=== PATIENT | male | born 1990 | race Caucasian/White ===

== ENCOUNTER 2022-05-28 13:09 | Emergency (ER) | payer SELFPAY ==
--- NOTE | 2022-05-28 13:28 | EDPHYS ---
Physician Documentation [facility] Name: Joao Gipson Age: 32 yrs Sex: Male : 1990 Arrival Date: 05/28/2022 Time: 13:10 Bed 3 Private MD: ABRAHAM Physician Fredi Heath HPI: 05/28 13:28 This 32 yrs old Male presents to ER via EMS with complaints of epigastric pain. snw 13:28 The patient presents with abdominal pain in the epigastric area. Onset: The snw symptoms/episode began/occurred suddenly, s/p eating a hot chip. The symptoms do not radiate. Associated signs and symptoms: Pertinent positives: nausea. The symptoms are described as burning. Severity of pain: At its worst the pain was severe. The patient has not experienced similar symptoms in the past. The patient has not recently seen a physician. EMS had seen pt post challenge and albuterol neb administered. Pt returned to work and pt then had intense upper abdominal pain. EMS returned and pt arrived calm with decreased distress.. Historical: - Allergies: 13:13 No Known Allergies; ll1 - PMHx: 13:13 ADD; adhd; Anxiety; Bipolar disorder; depressive disorder; Schizophrenia; ll1 - PSHx: 13:13 Tonsillectomy; ll1 - Immunization history:: Client reports receiving the 2nd dose of the Covid vaccine. - Social history:: Smoking status: Patient reports the use of cigarette tobacco products, denies chronic smoking, but will smoke occasionally. ROS: 13:32 Constitutional: Negative for fever, chills, and weight loss, Eyes: Negative for injury, snw pain, redness, and discharge, ENT: Negative for injury, pain, and discharge, Neck: Negative for injury, pain, and swelling, Cardiovascular: Negative for chest pain, palpitations, and edema, Back: Negative for injury and pain, : Negative for injury, bleeding, discharge, and swelling, MS/Extremity: Negative for injury and deformity, Skin: Negative for injury, rash, and discoloration, Neuro: Negative for headache, weakness, numbness, tingling, and seizure, Psych: Negative for depression, anxiety, suicide ideation, homicidal ideation, and hallucinations. 13:32 Respiratory: Positive for shortness of breath, s/p spicy ingestion. 13:32 Abdomen/GI: Positive for abdominal pain, nausea, of the epigastric area. Exam: 13:26 Constitutional: This is a well developed, well nourished patient who is awake, alert, snw and in no acute distress. Head/Face: Normocephalic, atraumatic. Eyes: Pupils equal round and reactive to light, extra-ocular motions intact. Lids and lashes normal. Conjunctiva and sclera are non-icteric and not injected. Cornea within normal limits. Periorbital areas with no swelling, redness, or edema. ENT: Nares patent. No nasal discharge, no septal abnormalities noted. Tympanic membranes are normal and external auditory canals are clear. Oropharynx with no redness, swelling, or masses, exudates, or evidence of obstruction, uvula midline. Mucous membranes moist. Neck: Trachea midline, no thyromegaly or masses palpated, and no cervical lymphadenopathy. Supple, full range of motion without nuchal rigidity, or vertebral point tenderness. No Meningismus. Chest/axilla: Normal chest wall appearance and motion. Nontender with no deformity. No lesions are appreciated. Cardiovascular: Regular rate and rhythm with a normal S1 and S2. No gallops, murmurs, or rubs. Normal PMI, no JVD. No pulse deficits. Respiratory: Lungs have equal breath sounds bilaterally, clear to auscultation and percussion. No rales, rhonchi or wheezes noted. No increased work of breathing, no retractions or nasal flaring. Back: No spinal tenderness. No costovertebral tenderness. Full range of motion. Skin: Warm, dry with normal turgor. Normal color with no rashes, no lesions, and no evidence of cellulitis. MS/ Extremity: Pulses equal, no cyanosis. Neurovascular intact. Full, normal range of motion. Neuro: Awake and alert, GCS 15, oriented to person, place, time, and situation. Cranial nerves II-XII grossly intact. Motor strength 5/5 in all extremities. Sensory grossly intact. Cerebellar exam normal. Normal gait. Psych: Awake, alert, with orientation to person, place and time. Behavior, mood, and affect are within normal limits. 13:26 Abdomen/GI: Inspection: abdomen appears normal, Bowel sounds: normal, Palpation: mild abdominal tenderness, in the epigastric area. Vital Signs: 13:13 BP 127 / 89; Pulse 71; Resp 17; Temp 98.8; Pulse Ox 97% ; Weight 74.84 kg; Height 5 ft. ll1 10 in. (177.80 cm); Pain 0/10; 13:40 BP 135 / 77; Pulse 73; Resp 16; Pulse Ox 98% on R/A; kr3 14:13 BP 143 / 76; Pulse 98; Resp 17; Pulse Ox 100% ; kr3 13:13 Body Mass Index 23.67 (74.84 kg, 177.80 cm) ll1 MDM: 13:16 Patient medically screened. snw 13:32 Data reviewed: vital signs, nurses notes. Data interpreted: Pulse oximetry: on room air snw is 97 %. Interpretation: normal. Administered Medications: 13:43 Drug: GI Cocktail without - (Maalox Suspension 30 ml, Lidocaine Liquid 2 % 15 kr3 ml) Route: PO; 14:15 Follow up: Response: No adverse reaction kr3 13:43 Drug: Pepcid (famotidine) 20 mg Route: IVP; Site: left antecubital; kr3 14:15 Follow up: Response: No adverse reaction kr3 Disposition Summary: 05/28/22 13:27 Discharge Ordered Location: Home snw Condition: Stable snw Diagnosis - Epigastric abdominal tenderness - s/p "one chip challenge" snw Followup: snw - With: Emergency Department - When: As needed - Reason: Worsening of condition Followup: snw - With: Private Physician - When: 2 - 3 days - Reason: Recheck today's complaints, Continuance of care, Re-evaluation by your physician Discharge Instructions: - Discharge Summary Sheet snw - Abdominal Pain, Adult snw Forms: - Medication Reconciliation Form snw - Thank You Letter snw - Antibiotic Education snw - Prescription Opioid Use snw - Work release form ll1 Prescriptions: - Pepcid 20 mg Oral Tablet - take 1 tablet by ORAL route every 12 hours for 10 days; 20 tablet; Refills: 0, snw Product Selection Permitted Signatures: Stephanie Fernandez FNP-C FNP-Celiow Cathy Pretty, RN RN ll1 Nery Beyer RN RN kr3
--- NOTE | 2022-05-28 13:28 | ER ---
Nurse's Notes [facility] Name: Joao iGpson Age: 32 yrs Sex: Male : 1990 Arrival Date: 05/28/2022 Time: 13:10 Bed 3 Private MD: Diagnosis: Epigastric abdominal tenderness-s/p "one chip challenge" Presentation: 05/28 13:13 Chief complaint: Patient states: Ate "one chip challenge", then had to call EMS for ll1 severe abd pain. Refused to come initially. 3.5 hours later decided to come in for N/V and severe abd pain. Coronavirus screen: Vaccine status: Patient reports receiving the 2nd dose of the covid vaccine. Client denies travel out of the [place] in the last 14 days. At this time, the client does not indicate any symptoms associated with coronavirus-19. Ebola Screen: Patient denies travel to an Ebola-affected area in the 21 days before illness onset. Initial Sepsis Screen: Does the patient meet any 2 criteria? No. Patient's initial sepsis screen is negative. Does the patient have a suspected source of infection? Yes: Acute abdominal pain. Risk Assessment: Do you want to hurt yourself or someone else? Patient reports no desire to harm self or others. Onset of symptoms was May 28, 2022. 13:13 Method Of Arrival: EMS ll1 13:13 Acuity: DEANNA 3 ll1 Triage Assessment: 13:16 General: Appears in no apparent distress. Behavior is calm, cooperative, appropriate ll1 for age. Pain: Denies pain. GI: Reports lower abdominal pain, upper abdominal pain, cramping, nausea, vomiting. Historical: - Allergies: 13:13 No Known Allergies; ll1 - PMHx: 13:13 ADD; adhd; Anxiety; Bipolar disorder; depressive disorder; Schizophrenia; ll1 - PSHx: 13:13 Tonsillectomy; ll1 - Immunization history:: Client reports receiving the 2nd dose of the Covid vaccine. - Social history:: Smoking status: Patient reports the use of cigarette tobacco products, denies chronic smoking, but will smoke occasionally. Screenin:13 Abuse screen: Denies threats or abuse. Nutritional screening: No deficits noted. kr3 Tuberculosis screening: No symptoms or risk factors identified. Fall Risk IV access (20 points). Total Leyva Fall Scale indicates No Risk (0-24 pts). Assessment: 13:39 General: Appears in no apparent distress. comfortable, Behavior is calm, cooperative, kr3 appropriate for age. 14:13 Reassessment: No changes from previously documented assessment. kr3 Vital Signs: 13:13 BP 127 / 89; Pulse 71; Resp 17; Temp 98.8; Pulse Ox 97% ; Weight 74.84 kg; Height 5 ft. ll1 10 in. (177.80 cm); Pain 0/10; 13:40 BP 135 / 77; Pulse 73; Resp 16; Pulse Ox 98% on R/A; kr3 14:13 BP 143 / 76; Pulse 98; Resp 17; Pulse Ox 100% ; kr3 13:13 Body Mass Index 23.67 (74.84 kg, 177.80 cm) ll1 ED Course: 13:10 Patient arrived in ED. ph 13:13 Arm band placed on Patient placed in an exam room, on a stretcher. ll1 13:16 Triage completed. ll1 13:16 Stephanie Fernandez FNP-C is [facility]. snw 13:16 Fredi Heath MD is Attending Physician. snw 13:20 Bed in low position. Call light in reach. Side rails up X 1. kr3 13:39 Nery Beyer, RN is Primary Nurse. kr3 14:14 No provider procedures requiring assistance completed. IV discontinued, intact, kr3 bleeding controlled, No redness/swelling at site. Pressure dressing applied. Administered Medications: 13:43 Drug: GI Cocktail without - (Maalox Suspension 30 ml, Lidocaine Liquid 2 % 15 kr3 ml) Route: PO; 14:15 Follow up: Response: No adverse reaction kr3 13:43 Drug: Pepcid (famotidine) 20 mg Route: IVP; Site: left antecubital; kr3 14:15 Follow up: Response: No adverse reaction kr3 Medication: 14:15 VIS not applicable for this client. kr3 Outcome: 13:27 Discharge ordered by . snw 14:14 Discharged to home ambulatory. kr3 14:14 Condition: stable 14:14 Discharge instructions given to patient, Instructed on discharge instructions, medication usage, Demonstrated understanding of instructions, medications, Prescriptions given X 1. 14:15 Patient left the ED. kr3 Signatures: Stephanie Fernandez FNP-C [employer]-Csnw Stacie Colin, RN RN ph Cathy Pertty, RN RN ll1 Nery Beyer, RN RN kr3
[2022-05-28] MEDS ORDERED: FAMOTIDINE 20 MG/2 ML VIAL IV ONE (13:38)
[2022-05-28] MEDS ORDERED: MAGNES/ALUMIN/SIMET 30ML UCUP ONE (13:38)
[2022-05-28] MEDS ORDERED: LIDOCAINE VISCOUS 2% SOLN 15 ML UDC ONE (13:38)
[2022-05-28 14:50] VITALS: TEMP 98.8
[2022-05-28 14:55] VITALS: BP 143/76; O2SAT 100
== END 2022-05-28 14:15 | disposition home or self-care (01) ==
LOC: ER 13:09
DX: R10.816 Epigastric abdominal tenderness (principal); F17.210 Nicotine dependence, cigarettes, uncomplicated
CPT/HCPCS: 96374; 99283

== ENCOUNTER 2022-06-16 17:10 | Emergency (ER) | payer OTHER, SELFPAY ==
--- NOTE | 2022-06-16 17:37 | RAD REPORT ---
EXAM DESCRIPTION: RAD - Hand Right 3 View - 06/16/2022 5:30 pm CLINICAL HISTORY: PAIN COMPARISON: No comparisons FINDINGS/IMPRESSION: No acute fracture. No malalignment. No significant focal degenerative changes.
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
[2022-06-16] MEDS ORDERED: DERMABOND SKIN ADHESIVE TOP ONE (18:17)
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
[2022-06-17 08:34] VITALS: TEMP 97.9
[2022-06-17 08:36] VITALS: BP 126/68; O2SAT 99
== END 2022-06-16 19:06 | disposition home or self-care (01) ==
LOC: ER 17:10
DX: S09.90XA Unspecified injury of head, initial encounter (principal); S63.694A Other sprain of right ring finger, initial encounter; S01.01XA Laceration without foreign body of scalp, initial encounter
CPT/HCPCS: 70450; 72125; 99284

== ENCOUNTER 2022-10-13 02:30 | Emergency (ER) | payer SELFPAY ==
[2022-10-13] MEDS ORDERED: ACETAMINOPHEN 500 MG TAB ONE (03:57)
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
[2022-10-13 04:44] VITALS: TEMP 98.5; O2SAT 99
[2022-10-13 04:46] VITALS: BP 127/82
--- NOTE | 2022-10-13 12:05 | RAD REPORT ---
EXAM DESCRIPTION: Shoulder Right 2 View - 10/13/2022 3:26 am CLINICAL HISTORY: The patient is 32 years old and is Male; PAIN Shoulder Right 2 View [facility] CHRISTINE IN TECHNIQUE: Frontal internal and external rotation views of the right shoulder. COMPARISON: No relevant prior studies available. FINDINGS: BONES/JOINTS: Unremarkable. No acute fracture. No dislocation. SOFT TISSUES: Unremarkable. IMPRESSION: Normal right shoulder x-ray. Electronically signed by: Anthony Wall MD 10/13/2022 3:41 AM DIE CUTTER OPERATOR Due to temporary technical issues with the PACS/Fluency reporting system, reports are being signed by the in house radiologists without review as a courtesy to insure prompt reporting. The interpreting radiologist is fully responsible for the content of the report.
--- NOTE | 2022-10-13 12:09 | RAD REPORT ---
EXAM DESCRIPTION: CT - Facial Bones W/ Mpr - 10/13/2022 4:29 am CLINICAL HISTORY: Head injury TECHNIQUE: Axial computed tomography images of the head/brain without intravenous contrast. Sagitt al and coronal reformatted images were created and reviewed. This CT exam was performed using one o r more of the following dose reduction techniques: automated exposure control, adjustment of the mA and/or kV according to patient size, and/or use of iterative reconstruction technique. COMPARISON: CT Head dated 06/16/2022 FINDINGS: Brain: Unremarkable. No hemorrhage. No significant white matter disease. No edema. Ventricles: Unremarkable. No ventriculomegaly. Bones/joints: Remote minimally angulated left nasal bone fracture again demonstrated. No acute fr acture. Soft tissues: Mild left paracentral forehead soft tissue swelling. Sinuses: Unremarkable as visualized. No acute sinusitis. Mastoid air cells: Unremarkable as visualized. No mastoid effusion. * A single impression for all exams can be found at the end of this report EXAM DESCRIPTION: CT Maxillofacial Without Intravenous Contrast CLINICAL HISTORY: Facial injury TECHNIQUE: Axial computed tomography images of the face without intravenous contrast. Sagittal and coronal reformatted images were created and reviewed. This CT exam was performed using one or more of the following dose reduction techniques: automated exposure control, adjustment of the mA and/o r kV according to patient size, and/or use of iterative reconstruction technique. COMPARISON: Head CT dated 06/16/2022 FINDINGS: Bones/joints: Remote minimally angulated left nasal bone fracture. No acute fracture. Soft tissues: Mild left paracentral forehead and right facial soft tissue swelling. Orbits: Unremarkable. Sinuses: Left maxillary sinus mucous retention cyst/polyp. No air-fluid levels. * A single impression for all exams can be found at the end of this report IMPRESSION: CT Head Without Intravenous Contrast: No acute intracranial or extra-axial abnormality. CT Maxillofacial Without Intravenous Contrast: Mild left paracentral forehead and right facial soft tissue swelling. No acute fracture. Electronically signed by: Leonie Carroll MD 10/13/2022 4:00 AM RETANNED LEATHER ROLLER Due to temporary technical issues with the PACS/Fluency reporting system, reports are being signed by the in house radiologists without review as a courtesy to insure prompt reporting. The interpreting radiologist is fully responsible for the content of the report.
--- NOTE | 2022-10-13 12:11 | RAD REPORT ---
EXAM DESCRIPTION: CT - Head Brain Wo Cont - 10/13/2022 4:29 am CLINICAL HISTORY: Head injury TECHNIQUE: Axial computed tomography images of the head/brain without intravenous contrast. Sagitt al and coronal reformatted images were created and reviewed. This CT exam was performed using one o r more of the following dose reduction techniques: automated exposure control, adjustment of the mA and/or kV according to patient size, and/or use of iterative reconstruction technique. COMPARISON: CT Head dated 06/16/2022 FINDINGS: Brain: Unremarkable. No hemorrhage. No significant white matter disease. No edema. Ventricles: Unremarkable. No ventriculomegaly. Bones/joints: Remote minimally angulated left nasal bone fracture again demonstrated. No acute fr acture. Soft tissues: Mild left paracentral forehead soft tissue swelling. Sinuses: Unremarkable as visualized. No acute sinusitis. Mastoid air cells: Unremarkable as visualized. No mastoid effusion. * A single impression for all exams can be found at the end of this report EXAM DESCRIPTION: CT Maxillofacial Without Intravenous Contrast CLINICAL HISTORY: Facial injury TECHNIQUE: Axial computed tomography images of the face without intravenous contrast. Sagittal and coronal reformatted images were created and reviewed. This CT exam was performed using one or more of the following dose reduction techniques: automated exposure control, adjustment of the mA and/o r kV according to patient size, and/or use of iterative reconstruction technique. COMPARISON: Head CT dated 06/16/2022 FINDINGS: Bones/joints: Remote minimally angulated left nasal bone fracture. No acute fracture. Soft tissues: Mild left paracentral forehead and right facial soft tissue swelling. Orbits: Unremarkable. Sinuses: Left maxillary sinus mucous retention cyst/polyp. No air-fluid levels. * A single impression for all exams can be found at the end of this report IMPRESSION: CT Head Without Intravenous Contrast: No acute intracranial or extra-axial abnormality. CT Maxillofacial Without Intravenous Contrast: Mild left paracentral forehead and right facial soft tissue swelling. No acute fracture. Electronically signed by: Leonie Carroll MD 10/13/2022 4:00 AM [employer] Due to temporary technical issues with the PACS/Fluency reporting system, reports are being signed by the in house radiologists without review as a courtesy to insure prompt reporting. The interpreting radiologist is fully responsible for the content of the report.
== END 2022-10-13 04:40 | disposition home or self-care (01) ==
LOC: ER 02:30
DX: H72.91 Unspecified perforation of tympanic membrane, right ear (principal); S00.01XA Abrasion of scalp, initial encounter; S46.011A Strain of muscle(s) and tendon(s) of the rotator cuff of right shoulder, initial encounter; Y04.8XXA Assault by other bodily force, initial encounter; Z59.02 Unsheltered homelessness; F20.9 Schizophrenia, unspecified
CPT/HCPCS: 70450; 70486; 76377; 99284